=== PATIENT | female | born 1980 | race Two or more races ===

== ENCOUNTER 2019-10-01 11:42 | Emergency (ER) | payer BC ==
[~2019-10-01] VITALS: Ht 162.6 cm; Wt 60.5 kg
[2019-10-01] MEDS ORDERED: ONDANSETRON 2MG/ML, 2ML ONE (12:37)
[2019-10-01] MEDS ORDERED: FAMOTIDINE 20 MG/2 ML ONE (12:37)
[2019-10-01 12:43] LABS: PH, VENOUS 7.323 pH (7.320-7.420)
--- NOTE | 2019-10-01 12:44 | NUR ---
PIV PLACED AND LABS DRAWN. 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 MEDS ADMIN PER
[2019-10-01 12:48] LABS: BASOPHILS % (AUTO) 0 % (0-1); EOSINOPHILS # (AUTO) 0.07 x10^3/uL (0-0.4); EOSINOPHILS % (AUTO) 1 % (1-7); LYMPHOCYTES % (AUTO) 6 % (22-44); MD NO; MEAN CORPUSCULAR HEMOGLOBIN 30.9 pg (27.0-34.8); MEAN CORPUSCULAR HGB CONC 33.8 g/dL (32.4-35.8); MEAN CORPUSCULAR VOLUME 91.5 fL (80-100); MONOCYTES % (AUTO) 1 % (2-9); NEUTROPHILS # (AUTO) 8.54 x10^3/uL (1.8-6.8); NEUTROPHILS % (AUTO) 93 % (42-75); PLATELET COUNT 271 x10^3/uL (130-400); RED BLOOD COUNT 5.47 x10^6/uL (3.82-5.3); RED CELL DISTRIBUTION WIDTH 12.5 % (9.6-15.2)
--- NOTE | 2019-10-01 12:51 | NUR ---
PT AMBULATED TO RESTROOM WITH STEADY GAIT TO PROVIDE URINE SAMPLE. UA COLLECTED AND SENT TO LAB.
[2019-10-01 12:56] LABS: ALANINE AMINOTRANSFERASE 36 U/L (12-78); ALBUMIN 4.6 g/dL (3.4-5.0); ANION GAP 12 mmol/L (5-15); CALCIUM 8.8 mg/dL (8.5-10.1); CHLORIDE 104 mmol/L (98-107); CREATININE 0.75 mg/dL (0.55-1.02)
[2019-10-01 12:58] LABS: ALKALINE PHOSPHATASE 95 U/L (45-117); BILIRUBIN,TOTAL 0.7 mg/dL (0.2-1.0); TOTAL PROTEIN 9.5 g/dL (6.4-8.2)
[2019-10-01] MEDS ORDERED: FAMOTIDINE 20 MG/2 ML IV ONE (13:00)
[2019-10-01] MEDS ORDERED: ONDANSETRON 2MG/ML, 2ML IVPush ONE (13:00)
[2019-10-01] MEDS ORDERED: SODIUM CHLORIDE 0.9% 1,000ML IVBOLUS ONE (13:00)
[2019-10-01 13:02] LABS: MICROSCOPIC AUTO
[2019-10-01 13:03] LABS: ACETONE, SERUM Moderate(40mg/dL) (Negative)
[2019-10-01 13:48] VITALS: BP 105/68
== END 2019-10-01 14:25 | disposition home or self-care (01) ==
LOC: ED 12:19
DX: R11.2 Nausea with vomiting, unspecified (principal); Z20.828 Contact with and (suspected) exposure to other viral communicable diseases; R68.83 Chills (without fever); R51 Headache; M79.10 Myalgia, unspecified site; E11.9 Type 2 diabetes mellitus without complications; Z90.49 Acquired absence of other specified parts of digestive tract
CPT/HCPCS: 36415; 80053; 81001; 82010; 82803; 85025; 87086; 87635; 96361; 96374; 96375; 99284; J2405; J3490; J7030